=== PATIENT | male | born 1955 | race Caucasian/White ===

== ENCOUNTER 2016-12-29 09:38 | Day surgery (SDC) | payer BC ==
[~2016-12-29 09:38] MED LIST: Buffered Lidocaine 1% SYR 3ML* 3 ML/SYR SYRINGE INTRADERM ONE
[2016-12-29] MEDS ORDERED: Neomycin/Polymy/Dex OPHTH.OIN* 3.5 GM ONE (10:12)
[2016-12-29] MEDS ORDERED: Phenylephrine 2.5% OPTH.SOL* 2 ML BTL ONE (10:12)
[2016-12-29] MEDS ORDERED: Lidocaine 1% MPF* 2 ML VIAL ONE (10:12)
[2016-12-29] MEDS ORDERED: Flurbiprofen 0.03% OPTH.SOL* 2.5 ML BTL ONE (10:12)
[2016-12-29] MEDS ORDERED: Tropicamide 1% OPTH.SOL* BTL ONE (10:12)
[2016-12-29] MEDS ORDERED: Tetracaine 0.5% OPTH.SOL 4 ML* 1 DROP BTL ONE (10:12)
[2016-12-29] MEDS ORDERED: Cyclopentolate 1% OPTH.SOL* 2 ML BTL ONE (10:12)
[2016-12-29] MEDS ORDERED: Midazolam* 1 MG/ML 2 ML VIAL (2 MG) ONE (11:26)
[2016-12-29 12:10] VITALS: BP 128/69
--- NOTE | 2016-12-30 02:26 | OP ---
DATE OF OPERATION: 12/29/16 - [facility] DATE OF : 53 SURGEON: Darrell Walters MD DANCE MASTER: None. ANESTHESIOLOGIST: Jovanny Mackay DO ANESTHESIA: Topical with intravenous sedation. PRE-OP DIAGNOSIS: Cataract with stigmatism, left eye. POST-OP DIAGNOSIS: Cataract with stigmatism, left eye. OPERATIVE PROCEDURE: Phacoemulsification and cataract extraction with posterior chamber intraocular toric lens, left eye. COMPLICATIONS: None. BLOOD LOSS: None. DESCRIPTION OF PROCEDURE: The patient was seen preoperatively in the holding area where he was placed in an upright position and a ari was made at the 6 o' clock position of the conjunctiva near the limbus in his left eye. The patient was subsequently brought to the operating room and given a small amount of intravenous sedation. A drop of tetracaine was placed in the left eye. The patient was prepped and draped in the usual sterile fashion for ophthalmic surgery and attention was directed to the left eye where speculum was placed. A paracentesis was created at the 5 o'clock position and 0.1 cc of 1% preservative-free lidocaine was injected in the anterior chamber followed by DisCoVisc. The eye was digitally stabilized while a 2.75 mm keratome was used to create a triplanar clear corneal incision at the 3 o'clock position. A continuous curvilinear capsulorrhexis was created with a cystotome and Utrata forceps. BSS on a cannula was used to hydrodissect the lens and the capsule. Phacoemulsification was performed in a [id number] technique to create 4 fragments, which were removed. Residual cortical material was removed with irrigation and aspiration. Healon was used to inflate the capsular bag. A marker was used to remark the 95 degree axis at the limbus. An [id number] 20 diopter lens was folded and inserted into the capsular bag. It was atraumatically rotated to the proper axial alignment using a Sinskey hook. The lens was hold in this position with a Sinskey hook through the paracentesis via irrigation and aspiration was performed to remove the viscoelastic from the eye. A Sinskey hook was removed. BSS on a cannula was used to hydrate with the corneal wound. At the end of the case, the pupil was round. The lens was centered stable and axially aligned. The eye pressure appeared normal and the wound was watertight. The speculum was removed and topical Maxitrol ointment was placed on the surface of the eye. The eye was closed, patched, and shielded and the patient was sent to the recovery room in stable condition with postoperative instructions and followup appointment given. [id number]/CPS #: [id number] MTDIrvin
== END 2016-12-29 12:04 | disposition home or self-care (01) ==
LOC: OREAST 09:38
PROVIDERS: ATTEND Ophthalmology
DX: H25.12 Age-related nuclear cataract, left eye (principal); E11.65 Type 2 diabetes mellitus with hyperglycemia; Z79.4 Long term (current) use of insulin; Z79.84 Long term (current) use of oral hypoglycemic drugs; F34.1 Dysthymic disorder; E78.2 Mixed hyperlipidemia; I10 Essential (primary) hypertension; G47.33 Obstructive sleep apnea (adult) (pediatric)
CPT/HCPCS: A9270-GY; J2250; V2787

== ENCOUNTER 2017-08-12 09:00 | Inpatient (IN) | payer BC ==
--- NOTE | 2017-08-03 13:55 | HP ---
HISTORY AND PHYSICAL: DATE OF ADMISSION/SURGERY: 08/12/17 DATE OF OFFICE VISIT: 07/30/17 SURGEON: Ayesha Watkins MD * (DICTATED BY JOSE LACY) PROCEDURE: Right total knee arthroplasty. CHIEF COMPLAINT: Right knee pain. HISTORY OF PRESENT ILLNESS: Mr. Thompson is a 62-year-old gentleman with end- stage osteoarthritis of the right knee. He has failed conservative management and has elected to proceed with a right total knee arthroplasty, which is scheduled for 08/12/[address] Watkins. PAST MEDICAL HISTORY: Diabetes, coronary artery disease, depression. PAST SURGICAL HISTORY: Cholecystectomy, bilateral knee arthroscopies, right foot hammertoe repair and bunionectomy, ganglion cyst excision, C4-C5 fusion, and cataract removal. CURRENT MEDICATIONS: 1. Meloxicam 15 mg daily. 2. Atenolol 25 mg daily. 3. Altace 2.5 mg daily. 4. Nitrostat as needed. 5. Aspirin 81 mg daily. 6. Lipitor 40 mg daily. 7. Vitamin D. 8. Humalog 20 units before meals. 9. Hydrochlorothiazide 20 mg daily. 10. Glucophage 1000 mg twice a day. 11. Levemir 16 units in the evening. 12. Wellbutrin 150 twice daily. 13. Lisinopril 40 mg daily. ALLERGIES: TALWIN, OXYCODONE, PERCOCET, NUCYNTA, all causing nausea. FAMILY HISTORY: Diabetes, heart disease, cancer. 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 He lives with his . He does not smoke or use drugs. REVIEW OF SYSTEMS: A complete 14-point review of systems is reviewed with the patient, was all negative or noncontributory. PHYSICAL EXAMINATION GENERAL: Well developed, well nourished, in no acute distress. HEENT: Normocephalic, atraumatic. NECK: Supple. No palpable lymph nodes. PULMONARY: Lungs are clear to auscultation bilaterally. CARDIO: Regular rate and rhythm. Strong S1, S2. ABDOMEN: Soft, nontender, nondistended. MUSCULOSKELETAL: Right lower extremity, the skin is intact. There are no open wounds or abrasions. 5 to 125 degrees range of motion. 2+ dorsalis pedis pulses. No varus or valgus instability. Tenderness over the medial and lateral joint line. His lower extremity muscle group strengths are intact at 5/5. NEUROLOGICAL: Alert and oriented x3. Cranial nerves II through XII are intact. ASSESSMENT AND PLAN: Mr. Thompson is a 62-year-old gentleman with end-stage osteoarthritis of the right knee. He has failed conservative management and has elected to proceed with a right total knee arthroplasty, which is scheduled for 08/12/[address] Watkins discussed the risks and the benefits of the surgery at today's visit and all of his questions were answered. Coumadin, Dilaudid, and Colace were sent to his pharmacy for postoperative pain control and DVT prophylaxis. He will follow up with Dr. Watkins 2 weeks after the surgery. JOSE LACY [id number]/CPS #: [id number] MTDD
[~2017-08-12 09:00] MED LIST changes: +Buffered Lidocaine 0.9% SYRIN* 5 ML/SYR SYRINGE INTRADERM ONE; -Buffered Lidocaine 1% SYR 3ML* 3 ML/SYR SYRINGE INTRADERM ONE; +Dexamethasone IV* 4 MG/ML 1 ML (4 MG) IV SLOW PU ONE; +Famotidine IV* 10 MG/ML 2 ML (20 mg) IV ONE
[2017-08-12] MEDS ORDERED: ceFAZolin 2 GM PREMIX (*) 0 ML IVPB ONE (11:57)
[2017-08-12] MEDS ORDERED: Dexamethasone IV* 4 MG/ML 1 ML (4 MG) ONE (11:57)
[2017-08-12] MEDS ORDERED: Famotidine IV* 10 MG/ML 2 ML (20 mg) ONE (11:57)
[2017-08-12] MEDS ORDERED: Buffered Lidocaine 0.9% SYRIN* 5 ML/SYR SYRINGE ONE (11:58)
[2017-08-12] MEDS ORDERED: ceFAZolin 1 GM ADVAN(*) 1 GM ADDV.VIAL IVPB ONE (11:58)
[2017-08-12] MEDS ORDERED: Atenolol TAB* 25 MG PO ONE (12:44)
[2017-08-12] MEDS ORDERED: Atenolol TAB* 25 MG ONE (12:51)
[2017-08-12] MEDS ORDERED: KETAMINE HCL* 50 MG/ML 10 ML VIAL ONE (13:06)
[2017-08-12] MEDS ORDERED: Morphine PF AMP (0.5MG/ML)* 5 MG/10 ML AMP ONE (13:06)
[2017-08-12] MEDS ORDERED: Propofol* 10 MG/ML 20 ML BTL IV PUSH ONE (13:06)
[2017-08-12] MEDS ORDERED: Ondansetron INJ* 2 MG/ML VIAL ONE ×2 (13:06→20:05)
[2017-08-12] MEDS ORDERED: Midazolam* 1 MG/ML 5 ML VIAL (5 MG) ONE ×2 (13:06→14:01)
[2017-08-12] MEDS ORDERED: Bupivacaine 0.5% SDV PF* 30 ML VIAL ONE ×2 (13:45→15:45)
[2017-08-12] MEDS ORDERED: Scopolomine PATCH Remove* 1 NOTE MISC PATCH OFF PRN (15:11)
[2017-08-12] MEDS ORDERED: Nalbuphine* 20 MG/ML 1 ML VIAL IV PRN ×2 (15:11)
[2017-08-12] MEDS ORDERED: Scopolamine 1.5 mg* PATCH TRANSDERM PRN (15:11)
[2017-08-12] MEDS ORDERED: fentaNYL* 50 MCG/ML 2 ML VIAL (100 MCG VIAL) IV PRN (15:11)
[2017-08-12] MEDS ORDERED: HYDROmorphone INJ* 1 MG/ML CARPUJECT SYRINGE IV PRN (15:11)
[2017-08-12] MEDS ORDERED: DiMENhydriNATE IV* 50 MG/ML VIAL IV PUSH PRN (15:11)
[2017-08-12] MEDS ORDERED: oxyCODONE/Acetamin 5/325 MG* TAB PO PRN ×2 (15:11)
[2017-08-12] MEDS ORDERED: Naloxone* 0.4 MG/ML 1 ML VIAL IV PRN (15:11)
[2017-08-12] MEDS ORDERED: Lidocaine 2% PF * 5 ML VIAL ONE (15:29)
[2017-08-12] MEDS ORDERED: Polyethylene Glycol 3350* 17 GM PACKET PO PRN (15:34)
[2017-08-12] MEDS ORDERED: Bisacodyl SUPP* 10 MG SUPP PR PRN (15:34)
[2017-08-12] MEDS ORDERED: Acetaminophen TAB* 325 MG PO PRN (15:34)
[2017-08-12] MEDS ORDERED: Magnesium Hydroxide LIQ* 30 ML UDC PO PRN (15:34)
[2017-08-12] MEDS ORDERED: Nitroglycerin TAB 0.4 MG* 0.4 MG TAB SL PRN (15:41)
[2017-08-12] MEDS ORDERED: Hydrochlorothiazide TAB* 25 MG PO SCH (16:00)
[2017-08-12] MEDS ORDERED: INSULIN ASPART 20 UNIT SUBCUT SCH (17:00)
[2017-08-12] MEDS ORDERED: DiMENhydriNATE IV* 50 MG/ML VIAL ONE (17:49)
[2017-08-12] MEDS ORDERED: INSULIN DETEMIR 58 UNIT SC SCH (18:00)
--- NOTE | 2017-08-12 18:15 | RAD ---
Indication: Immediate postop exam following RIGHT total knee replacement. Comparison: July 30, 2017 Technique: Portable AP and cross table lateral views RIGHT knee. Report: Status post total knee replacement. Anterior surgical drain in place. Post-op fluid and gas is seen in the joint space and anterior subcutaneous tissues. Alignment is anatomic. No periprosthetic fracture evident. IMPRESSION: Unremarkable immediate postoperative appearance following RIGHT knee replacement.
[2017-08-12] MEDS ORDERED: Dextrose 50% Syringe 50 ML* 25 GM/50 ML SYRINGE IV PUSH PRN (18:56)
[2017-08-12] MEDS ORDERED: Insulin LISPRO* 1 UNITS UNIT SUBCUT ONE (19:34)
[2017-08-12] MEDS: Insulin LISPRO* 1 UNITS UNIT SUBCUT SCH (19:36)
[2017-08-12] MEDS: Ondansetron INJ* 2 MG/ML VIAL IV PRN (20:06)
[2017-08-12] MEDS ORDERED: metFORMIN* 1,000 MG TAB PO SCH (21:00)
[2017-08-12] MEDS ORDERED: Nalbuphine* 20 MG/ML 1 ML VIAL ONE (21:51)
[2017-08-12] MEDS: Docusate CAP* 100 MG PO SCH (22:43)
[2017-08-12] MEDS: ceFAZolin 1 GM VIAL(*) 1 GM in NS 0.9% 50 ML* 50 ML IVPB SCH (22:50)
[2017-08-12] MEDS ORDERED: Warfarin TAB(*) 6 MG PO ONE (23:00)
--- NOTE | 2017-08-12 23:46 | CONS ---
CC: Dr. Rios; Dr. Watkins * CONSULTATION REPORT: DATE OF CONSULT: 08/12/17 PRIMARY CARE PROVIDER: Dr. Rios. ATTENDING PHYSICIAN WHILE IN THE HOSPITAL: Kirk Soler MD (report dictated by Tiago Ashley NP). REQUESTING PHYSICIAN IN CONSULT: Dr. Watkins. REASON FOR MEDICAL CONSULTATION: Evaluation and management of comorbid medical conditions. HISTORY OF PRESENTING ILLNESS: Mr. Thompson is a 62-year-old male patient. He has a significant medical history for coronary artery disease and diabetes. He has a history of untreated sleep apnea. He comes in to our orthopedic service today for an elective total knee replacement on the right side. He has been having significant amounts of knee discomfort for some time. He has been failing conservative therapy and because of this he presented to Dr. Watkins's service in the outpatient setting and he was cleared via Cardiology and his primary for an elective total knee replacement, which he underwent today. He was evaluated in the PACU. He says he is feeling well, he is a little dizzy. He denies having any chest pain or shortness of breath. He says he does not feel nauseated. He does not feel like he is going to faint, he does not feel like he is going to pass out. Denies having any chest discomfort. He says he is getting sensation back in his lower extremities. He denies having any difficulty with moving his lower extremities. Denies having any shortness of breath, but he does again carry a history of arthritis, diabetes, CAD, depression and THEE and because of these complexities, we were asked to evaluate in consult. PAST MEDICAL HISTORY: Significant for: 1. Arthritis. 2. Diabetes. 3. CAD. 4. Depression. 5. THEE. PAST SURGICAL HISTORY: 1. He has had a cholecystectomy. 2. Knee arthroscopy. 3. Right toe surgery. 4. Bunionectomy. 5. Cystic excision on the right toe. 6. He has an L4-5 laminectomy. 7. He has had cataract extraction. 8. Now he has had a right total knee replacement. FAMILY HISTORY: His mother had a history of dementia. Father had a history of coronary artery disease. SOCIAL HISTORY: He is a nonsmoker, rarely drinks alcohol. He is a retired nurse. Surrogate decision maker is his . ALLERGIES TO MEDICATIONS: Include: 1. HYDROCODONE. 2. OXYCODONE. 3. TAPENTADOL. 4. TALWIN. HOME MEDICATIONS: Include: 1. Ramipril 2.5 mg daily. 2. [place] fatty acids 1 capsule daily. 3. Nitro 0.4 mg sublingual as instructed. 4. Glucophage 1000 mg p.o. b.i.d. 5. Meloxicam 15 mg p.o. daily. 6. Insulin detemir 58 units subcu q.p.m. 7. NovoLog FlexPen sliding scale as directed. 8. Ibuprofen 800 mg p.o. t.i.d. as needed. 9. Hydrochlorothiazide p.o. daily. 10. Vitamin D 2000 units p.o. daily. 11. Lipitor 40 mg daily. 12. Atenolol 25 mg daily. 13. Aspirin 81 mg p.o. b.i.d. REVIEW OF SYSTEMS: There is no documented fever. Denied having any significant weight change. There was no double vision. He denies having any ear discharge. There was no rhinorrhea. No sore throat. No thyroid enlargement. He denied having any chest pain. There is no orthopnea. No nocturnal dyspnea. There is no abdominal pain, no nausea, no vomiting, no dysuria, no frequency, no seizures, no loss of consciousness, no pruritus and no skin ulcerations. Review of 14 systems completed, all others negative. PHYSICAL EXAMINATION: Vital Signs: Blood pressure 124/67, pulse 62, respirations 14, O2 sat 97%, temperature 97.2. General: At this time, Mr. Thompson is a 62-year- old male patient, he is sitting in the PACU. He is morbidly obese. He does not appear to be in any acute distress. HEENT: Head: Atraumatic, normocephalic. Eyes: EOMs are intact. Sclerae anicteric. Not pale. Neck: Supple. Throat: Oral mucosa appears to be moist. No oropharyngeal erythema. Heart: Sounds S1, S2. Regular rate and rhythm. No murmurs, rubs, or gallops. Lungs: Clear to auscultation bilaterally. No wheezes, rales, or rhonchi. Abdomen: Soft, flat, nontender. Bowel sounds hypoactive. Extremities: Pulses were 2+ throughout. He is able to move his upper extremities with 5/5 strength. The right lower extremity, he does have distal CSM checks are intact. Neurologically, he is drowsy, but he awakens to his name. He is alert, he is oriented x3. He had no gross focal deficits. Skin is intact with the exception to the right knee he has an Duong dressing and a Hemovac drain and is intact. DIAGNOSTIC STUDIES/LAB DATA: Preop WBC 9.7, RBC of 5.14, hemoglobin 15.7, hematocrit 46, platelet count 243. INR was 0.84. Sodium 136, potassium 4.9, chloride 102, bicarb 28, BUN 15, creatinine 0.91. His glucose is 171. Urine preop 1+ ketones, 1+ protein, 2+ leukocyte esterase, 2+ wbc's, absent bacteria. Urine culture did grew out strep group B in 50,000 to 75,000 units. He did have a preop stress test, report read as low risk stress test. Preop chest x-ray showed no active cardiopulmonary disease. Preop, he did have a stress test normal, low risk. He had a preop EKG, shows a sinus rhythm, rate 77. No ST elevation or T-wave inversions. Old medical records were reviewed. ASSESSMENT AND PLAN: Mr. Thompson is a 62-year-old male patient with multiple medical problems, coming into orthopedic service today for an elective total knee replacement. We were asked to evaluate in consult. Our recommendations at this point are: 1. Status post right total knee replacement. I will defer the management to Dr. Watkins and her team. 2. Diabetes. At this point, he is on a pretty extensive sliding scale, the copy of this is in his chart, but because I am not quite sure how he is going to be eating in the next 24 hours, I am going to put him on our sliding scale for BMI greater than 40 and we will continue his Levemir, but we will change it over to Lantus and we will follow his diabetes closely. 3. Coronary artery disease. Continue his atenolol. I will get him back on his aspirin as soon as it is deemed safe by the Surgery. 4. Hypertension. Holding the Altace. Continuing the beta-raina for now. 5. Depression. Continue with supportive care. 6. Arthritis. Follow up with his primary. 7. History of obstructive sleep apnea. For the first 24 hours because of the Duramorph, I am going to place him on pulse oximetry. 8. DVT prophylaxis. I will defer to the primary team. 9. Code status: Full code. 10. Fluids, electrolytes, and nutrition. I would recommend a consistent carb diet. TIME SPENT: On the consult 60 minutes, greater than half the time spent face-to - face with the patient obtaining history and physical; other half time spent going over the plan of care with the patient and implementing the plan of care. I did discuss this plan of care with my attending, Dr. Soler, he is in agreement. TIAGO ASHLEY, NITROGEN OPERATOR [id number]/CPS #: [id number] ISAAC
[2017-08-13] MEDS ORDERED: Insulin GLARGINE(*) 1 UNITS UNIT SUBCUT SCH (04:18)
[2017-08-13] MEDS: Ondansetron INJ* 2 MG/ML VIAL IV PRN (04:52)
[2017-08-13] MEDS ORDERED: traMADol TAB* 50 MG PO PRN (06:00)
[2017-08-13] MEDS ORDERED: Ondansetron INJ* 2 MG/ML VIAL IV PRN (06:00)
[2017-08-13] MEDS ORDERED: HYDROmorphone INJ* 2 MG/ML CARPUJECT SYRINGE IV SLOW PU PRN (06:00)
[2017-08-13] MEDS ORDERED: Ondansetron TAB* 4 MG PO PRN (06:00)
[2017-08-13] MEDS: ceFAZolin 1 GM VIAL(*) 1 GM in NS 0.9% 50 ML* 50 ML IVPB SCH ×2 (06:08→14:35)
[2017-08-13 07:30] LABS: Hematocrit 39 % (42-52); Hemoglobin 12.9 g/dl (14.0-18.0)
[2017-08-13] MEDS: Atorvastatin* 40 MG TAB PO SCH (07:46)
[2017-08-13] MEDS: Atenolol TAB* 25 MG PO SCH (07:46)
[2017-08-13] MEDS: Insulin LISPRO* 1 UNITS UNIT SUBCUT SCH ×3 (07:46→17:24)
[2017-08-13] MEDS: Docusate CAP* 100 MG PO SCH ×2 (07:46→21:23)
[2017-08-13 07:47] LABS: BUN/Creatinine Ratio 24.4 (8-20); Calcium 8.7 mg/dL (8.6-10.3); EGFR African American 115.5 (>60); EGFR Non-African American 89.8 (>60); Potassium 4.6 mmol/L (3.5-5.0)
[2017-08-13] MEDS ORDERED: Ramipril CAP* 2.5 MG PO SCH (09:00)
--- NOTE | 2017-08-13 10:28 | PN ---
Progress Note - Progress Note Date of Service: 08/13/17 SOAP: Subjective: []Patient seen OOB in chair, pain well managed. Denies SOB, CP or dizziness. Objective: [] Vital Signs Temp 97.4 F 08/13/17 02:20 Pulse 68 08/13/17 02:20 Resp 16 08/13/17 09:25 BP 117/72 08/13/17 02:20 Pulse Ox 95 08/13/17 02:20 Intake & Output 08/12/17 08/13/17 08/13/17 18:59 06:59 18:59 Intake Total 2100 1340 Output Total 450 800 Balance 1650 540 Weight 321 lb 6.4 oz Intake: IV Fluids 2100 985 3GM ANCEF 100 LR 2000 985 IVPB 55 ABX - CEFAZOLIN 55 Oral 300 Output: Santana 450 650 Emesis 150 Laboratory Results - last 24 hr 08/12/17 08/12/17 08/12/17 12:21 17:33 19:31 Hgb Hct INR (Anticoag Therapy) Sodium Potassium Chloride Carbon Dioxide Anion Gap BUN Creatinine Est GFR ( Amer) Est GFR (Non-Af Amer) BUN/Creatinine Ratio Glucose POC Glucose (mg/dL) 243 H 255 H 297 H Hemoglobin A1c Calcium 08/13/17 08/13/17 08/13/17 07:12 07:12 07:12 Hgb 12.9 L Hct 39 L INR (Anticoag Therapy) 1.02 Sodium 133 Potassium 4.6 Chloride 100 L Carbon Dioxide 24 Anion Gap 9 BUN 21 Creatinine 0.86 Est GFR ( Amer) 115.5 Est GFR (Non-Af Amer) 89.8 BUN/Creatinine Ratio 24.4 H Glucose 346 H POC Glucose (mg/dL) Hemoglobin A1c Calcium 8.7 08/13/17 08/13/17 07:12 07:37 Hgb Hct INR (Anticoag Therapy) Sodium Potassium Chloride Carbon Dioxide Anion Gap BUN Creatinine Est GFR ( Amer) Est GFR (Non-Af Amer) BUN/Creatinine Ratio Glucose POC Glucose (mg/dL) 352 H Hemoglobin A1c 7.6 H Calcium Right knee dressings are dry and intact Hemovac canister with ~350cc of blood collected, drain discontinued without complication, tip intact +DF/PF right ankle calf NT sensation intact distally Assessment: []s/p Right total knee arthroplasty POD #1 Plan: []PT/OT WBAT RLE Coumadin with Lovenox bridge- 8 mg today Change to po Dilaudid secondary to allergy to Oxycodone Home with VNS over weekend
[2017-08-13] MEDS: HYDROmorphone TAB* 4 MG PO PRN ×2 (12:24→18:06)
--- NOTE | 2017-08-13 14:08 | PN ---
Subjective Date of Service: 08/13/17 Interval History: This is a 62 yo male with IDDM who is s/p R TKR. Hospitalist group has been consulted for medical co-management. Patient reports that his glucose is well controlled at home with 58U Levemir nightly and 20U Novolog at mealtime. Glucose today has been consistently >300 mg/dl. It does not look like he received his insulin glargine dose last night. Patient reports good pain control. No n/v. No c/o CP or SOB. Objective Active Medications: Acetaminophen (Tylenol Tab*) 650 mg PO Q4H PRN PRN Reason: PAIN OR TEMPERATURE Atenolol (Tenormin Tab*) 25 mg PO QAM [facility] Last Admin: 08/13/17 07:46 Dose: 25 mg Atorvastatin Calcium (Lipitor*) 40 mg PO QAM [facility] Last Admin: 08/13/17 07:46 Dose: 40 mg Bisacodyl (Dulcolax Supp*) 10 mg ND DAILY PRN PRN Reason: constipation Dextrose (D50w Syringe 50 Ml*) 12.5 gm IV PUSH .FOR FS < 60 - SS PRN PRN Reason: FS < 60 Diphenhydramine HCl (Benadryl Iv*) 12.5 mg IV Q6H PRN PRN Reason: PRURITIS Docusate Sodium (Colace Cap*) 100 mg PO BID [facility] Last Admin: 08/13/17 07:46 Dose: 100 mg Enoxaparin Sodium (Lovenox(*)) 30 mg SUBCUT Q24H [facility] Hydromorphone HCl (Dilaudid Inj*) 1 mg IV SLOW PU Q4H PRN PRN Reason: PAIN Last Admin: 08/13/17 09:25 Dose: 1 mg Hydromorphone HCl (Dilaudid Tab*) 4 mg PO Q6H PRN PRN Reason: PAIN Last Admin: 08/13/17 12:24 Dose: 4 mg Cefazolin Sodium 1 gm/ Sodium (Chloride) 50 mls @ 200 mls/hr IVPB Q8H [facility] Stop: 08/13/17 14:44 Last Admin: 08/13/17 06:08 Dose: 200 mls/hr Lactated Ringer's (Lactated Ringers 1000 Ml Bag*) 1,000 mls @ 100 mls/hr IV PER RATE [facility] Last Admin: 08/13/17 06:09 Dose: 100 mls/hr Insulin Glargine (Lantus(*)) 58 units SUBCUT QPM [facility] Insulin Human Lispro (Humalog*) 20 units SUBCUT AC [facility] Lactulose (Lactulose*) 30 ml PO Q6H PRN PRN Reason: constipation Magnesium Hydroxide (Milk Of Magnesia Liq*) 30 ml PO Q6H PRN PRN Reason: constipation Metformin HCl (Glucophage*) 1,000 mg PO 0800,1700 [facility] Nitroglycerin (Nitroglycerin Tab 0.4 Mg*) 0.4 mg SL Q5M PRN PRN Reason: PAIN - CHEST Ondansetron HCl (Zofran Inj*) 4 mg IV Q6H PRN PRN Reason: NAUSEA Ondansetron HCl (Zofran Tab*) 4 mg PO Q6H PRN PRN Reason: NAUSEA Pharmacy Profile Note (Scopolomine Patch Remove*) 1 note PATCH OFF .AFTER 72 HOURS PRN PRN Reason: nausea Stop: 08/15/17 15:13 Polyethylene Glycol/Electrolytes (Miralax*) 17 gm PO DAILY PRN PRN Reason: Constipation Tramadol HCl (Ultram*) 50 mg PO Q4H PRN PRN Reason: PAIN Warfarin Sodium (Coumadin Tab(*)) 8 mg PO ONCE@1700 ONE PRN Reason: Protocol Stop: 08/13/17 17:01 Vital Signs: Temp Pulse Resp BP Pulse Ox 98.7 F 64 16 119/57 96 08/13/17 11:42 08/13/17 11:18 08/13/17 12:24 08/13/17 11:18 08/13/17 11:18 Oxygen Devices in Use Now: None Appearance: Well appearing middle aged male in NAD Respiratory: Symmetrical Chest Expansion and Respiratory Effort, - - few crackles at the base Cardiovascular: NL Sounds; No Murmurs; No JVD, RRR Extremities: No Edema Skin: No Rash or Ulcers Neurological: Alert and Oriented x 3 Result Diagrams: 08/13/17 07:12 08/13/17 07:12 Assess/Plan/Problems-Billing Assessment: This is a 62 yo male with IDDM, THEE, CAD, depression who is s/p R TKA with Dr Watkins. Hospitalist group is consulting for medical co-management. - Patient Problems (1) Status post total knee replacement Comment: POD #1 Post-op management per ortho (2) IDDM (insulin dependent diabetes mellitus) Comment: Hyperglycemic today, HgbA1c 7.6% It does not appeared patient received Lantus yesterday, but scheduled for this evening Will cont usual home dose of Lantus and 20U Humalog at mealtime Will titrate as needed (3) CAD (coronary artery disease) Comment: Asx Cont home meds, resume ASA when okayed by surgeon (4) THEE (obstructive sleep apnea) Comment: Untreated (5) Depression Comment: No home medications listed Appears stable (6) Full code status (7) DVT prophylaxis Comment: Lovenox/Coumadin per ortho Status and Disposition: Dispo per ortho. Hospitalist will continue to follow.
[2017-08-13] MEDS: metFORMIN* 1,000 MG TAB PO SCH ×2 (14:13→17:23)
[2017-08-13] MEDS: diPHENhydraMINE IV* 50 MG/ML 1 ml VIAL (BENADRYL) IV PRN ×2 (14:36→21:23)
[2017-08-13] MEDS: Enoxaparin(*) 30 MG/0.3 ML SYR SUBCUT SCH (16:27)
[2017-08-13] MEDS ORDERED: Warfarin TAB(*) 4 MG PO ONE (17:00)
--- NOTE | 2017-08-13 18:15 | OP ---
OPERATIVE REPORT: DATE OF OPERATION: 08/12/17 DATE OF : 53 SURGEON: Ayesha Watkins MD MACHINIST SUPERVISOR: JOSE Otoole Ms. did help throughout the procedure with preparation of the leg, wound retraction, manipulation of the knee, and wound closure. ANESTHESIOLOGIST: Curt Joseph MD ANESTHESIA: Spinal. PRE-OP DIAGNOSIS: Severe end-stage degenerative osteoarthritis of the right knee joint with valgus deformity. POST-OP DIAGNOSIS: Severe end-stage degenerative osteoarthritis of the right knee joint with valgus deformity. OPERATIVE PROCEDURE: Right total knee arthroplasty. INDICATIONS: Mr. Thompson is a 62-year-old gentleman with years of increasingly severe right knee pain and valgus deformity. Radiographs confirmed end-stage arthritis with [id number] contact. The patient failed conservative treatment with anti-inflammatories, pain medications, intraarticular injection, and physical therapy. Due to continued pain and decreased quality of life, he elected to undergo right total knee arthroplasty. Informed consent was obtained from the patient. He understood the risks of the surgery included, but were not limited to bleeding, infection, damage to nearby structures, continued pain, need for further surgery, intraoperative fracture, nerve palsy, hardware failure or loosening, knee stiffness, loss of motion, stroke, heart attack, blood clot, and . He wished to proceed. HARDWARE USED: This is cemented [employer] total knee hardware. Two packages of Simplex bone cement. For the femur, a size 7 right posterior stabilized Legion Oxinium femoral component. For the tibia, size 7 right tibial baseplate. For the insert, a 9-mm posterior stabilized articular insert size 7/8. For the patella, 35-mm 3-peg all-poly patella. TOURNIQUET TIME: 61 minutes. ESTIMATED BLOOD LOSS: 300 cc. DRAIN: Medium Hemovac drain. SPECIMEN: Bone and cartilage from the right knee joint sent to Pathology. COMPLICATIONS: None. INTRAOPERATIVE FINDINGS: The patient was noted to have preop valgus deformity of over 10 degrees, which was corrected to anatomic valgus. He had tricompartmental full thickness loss of cartilage. Lateral and patellofemoral compartment were most affected. There was lateral femoral condylar hypoplasia noted. DESCRIPTION OF PROCEDURE: Mr. Thompson was identified in the preanesthesia unit. His right lower extremity was marked as the corrective operative side. Informed consent was signed and placed in the chart. The patient was taken to the operating room and placed under spinal anesthesia. A Santana catheter was placed. Tourniquet was placed on the right thigh. Right lower extremity was prepped and draped in the usual sterile fashion. Preop time-out was made to correctly identify the patient's side and site. Appropriate perioperative antibiotics were given within 1 hour of incision. Tourniquet was inflated and total tourniquet time for this procedure was 61 minutes. A 14-cm midline incision was made with a 10 blade and carried down to the extensor mechanism. New 10 blade was used to make a standard medial parapatellar arthrotomy. The patella was subluxed laterally. Electrocautery was used to subperiosteally elevate soft tissue off the superomedial tibia to the mid sagittal plane. The knee was flexed up. Anterior horn of the lateral meniscus was not visible. ACL was sharply released. A drill was used to enter the distal femur. Distal femoral intramedullary cutting guide was pinned on the distal femur. The lateral femoral condylar hypoplasia was noted and accounted for. Oscillating saw was used to make the distal femoral cut. Next, the external rotation guide was pinned on the distal femur and the distal femur was sized to a size 7. Size 7 multi-cutting jig was pinned on the distal femur. Oscillating saw was used to make the appropriate femoral cuts. All bony fragments were carefully removed. PCL was completely released. Extramedullary tibial cutting guide was pinned on the proximal tibia. Proximal tibial bone fragment was carefully removed. The knee was brought out into full extension. Spacer block had excellent fit with full extension. Medial and lateral ligaments were well balanced. Flexion and extension gaps were well balanced. The knee was flexed up. Lamina analytical research chemist was placed both medially and laterally. Any remaining meniscus was carefully removed using electrocautery. Posterior osteophytes were removed using curved osteotome and curette. Trial 7 right femur was impacted on to the distal femur. This femur had excellent stability. Box for the posterior stabilized implant was prepared using a reamer and box cut osteotome. A size 7 tibial tray trial with a 9-mm insert trial was chosen. The knee was taken through a range of motion and it had full extension to 130 degrees of flexion. There was satisfactory patellofemoral tracking. Patella was everted. 9 mm of patellar bone and cartilage was carefully removed using an oscillating saw. The patella was sized to a size 35. Three peg holes were drilled through the size 35 guide. A 35 trial patella was placed and the knee was taken through a range of motion. There was satisfactory patellofemoral tracking. All trials were carefully removed. The tibia was subluxed anteriorly. Tibia was sized to a size 7. Proximal tibia was prepared using a size 7 keel punch. All bony cut surfaces were copiously irrigated with sterile saline and dried. Final implants were cemented into place starting with the tibia, followed by the femur and lastly the patella. A 9-mm insert trial was placed while the knee was brought into full extension. Tourniquet was turned down at 61 minutes. The knee was copiously irrigated with sterile saline. Once the cement had fully cured, the insert trial was removed. Any excess cement was removed from around the hardware around the capsule. Electrocautery was used to obtain meticulous hemostasis. Final insert chosen was a 9-mm posterior stabilized articular insert. It was locked into position on the tibial tray. Stability of the insert was checked and rechecked and noted to be stable. The knee was copiously irrigated with sterile saline. The extensor mechanism was closed using interrupted #1 Vicryl's over a medium Hemovac drain. The rest of the incision was closed in a layered fashion using 0 and 2-0 Vicryl's. Skin was closed using running 3-0 nylon suture. Sterile Xeroform, 4x4's, and Webril were used to cover the incision. Duong wrap and cold pack were placed over this. The patient's anesthesia was reversed without difficulty. He was taken to the PACU in stable condition. Intended weightbearing will be weightbearing as tolerated. Intended DVT prophylaxis will be coumadin with a lovenox bridge. [id number]/[facility] #: [id number] ISAAC
[2017-08-14] MEDS: HYDROmorphone TAB* 4 MG PO PRN ×2 (00:05→08:01)
[2017-08-14 06:37] LABS: Hematocrit 32 % (42-52); Hemoglobin 11.2 g/dl (14.0-18.0)
--- NOTE | 2017-08-14 07:37 | PN ---
Progress Note - Progress Note Date of Service: 08/14/17 SOAP: Subjective: Pt. is alert, c/o aching pain. He wants to go home today. Objective: RLE - dressing changed, inc c/d/i. distally nvi. Vital Signs: Temp Pulse Resp BP Pulse Ox 97.9 F 74 14 139/73 96 08/14/17 03:28 08/14/17 03:28 08/14/17 05:24 08/14/17 03:28 08/14/17 03:28 Laboratory Results - last 24 hr 08/13/17 08/13/17 08/13/17 07:12 07:12 07:12 Hgb 12.9 L Hct 39 L INR (Anticoag Therapy) 1.02 Sodium 133 Potassium 4.6 Chloride 100 L Carbon Dioxide 24 Anion Gap 9 BUN 21 Creatinine 0.86 Est GFR ( Amer) 115.5 Est GFR (Non-Af Amer) 89.8 BUN/Creatinine Ratio 24.4 H Glucose 346 H POC Glucose (mg/dL) Hemoglobin A1c Calcium 8.7 08/13/17 08/13/17 08/13/17 07:12 07:37 12:27 Hgb Hct INR (Anticoag Therapy) Sodium Potassium Chloride Carbon Dioxide Anion Gap BUN Creatinine Est GFR ( Amer) Est GFR (Non-Af Amer) BUN/Creatinine Ratio Glucose POC Glucose (mg/dL) 352 H 347 H Hemoglobin A1c 7.6 H Calcium 08/13/17 08/14/17 08/14/17 16:30 06:20 06:20 Hgb 11.2 L Hct 32 L INR (Anticoag Therapy) 1.26 H Sodium Potassium Chloride Carbon Dioxide Anion Gap BUN Creatinine Est GFR ( Amer) Est GFR (Non-Af Amer) BUN/Creatinine Ratio Glucose POC Glucose (mg/dL) 276 H Hemoglobin A1c Calcium Assessment: 62 yo M pod 2 s/p RTKA Plan: pt/ot wbat add morphine ER BID for pain control lovenox today d/c to home with vns
[2017-08-14] MEDS: Docusate CAP* 100 MG PO SCH (08:00)
[2017-08-14] MEDS: Atorvastatin* 40 MG TAB PO SCH (08:00)
[2017-08-14] MEDS: metFORMIN* 1,000 MG TAB PO SCH (08:00)
[2017-08-14] MEDS ORDERED: Morphine TAB Extended Release (*) 15 MG TAB.ER PO SCH (08:00)
[2017-08-14] MEDS: Atenolol TAB* 25 MG PO SCH (08:01)
[2017-08-14] MEDS: Insulin LISPRO* 1 UNITS UNIT SUBCUT SCH (08:10)
--- NOTE | 2017-08-14 08:35 | PN ---
Subjective Date of Service: 08/14/17 Interval History: Patient seen and examined at bedside. Patient states sugars elevated. He states at home he usually can take up to 60 units total daily of Lispro. Pain controlled. Going home today. Family History: Unchanged from Admission Social History: Unchanged from Admission Past Medical History: Unchanged from Admission Objective Active Medications: Acetaminophen (Tylenol Tab*) 650 mg PO Q4H PRN Atenolol (Tenormin Tab*) 25 mg PO QAM CHIQUI Atorvastatin Calcium (Lipitor*) 40 mg PO QAM CHIQUI Bisacodyl (Dulcolax Supp*) 10 mg [place] DAILY PRN Diphenhydramine HCl (Benadryl Iv*) 12.5 mg IV Q6H PRN Docusate Sodium (Colace Cap*) 100 mg PO BID CHIQUI Enoxaparin Sodium (Lovenox(*)) 30 mg SUBCUT Q24H CHIQUI Hydromorphone HCl (Dilaudid Inj*) 1 mg IV SLOW PU Q4H PRN Hydromorphone HCl (Dilaudid Tab*) 4 mg PO Q6H PRN Insulin Glargine (Lantus(*)) 58 units SUBCUT QPM CHIQUI Insulin Human Lispro (Humalog*) 25 units SUBCUT AC CHIQUI Lactulose (Lactulose*) 30 ml PO Q6H PRN Magnesium Hydroxide (Milk Of Magnesia Liq*) 30 ml PO Q6H PRN Metformin HCl (Glucophage*) 1,000 mg PO 0800,1700 CHIQUI Morphine Sulfate (Ms Contin(*)) 15 mg PO Q8H CHIQUI Nitroglycerin (Nitroglycerin Tab 0.4 Mg*) 0.4 mg SL Q5M PRN Ondansetron HCl (Zofran Inj*) 4 mg IV Q6H PRN Ondansetron HCl (Zofran Tab*) 4 mg PO Q6H PRN Pharmacy Profile Note (Scopolomine Patch Remove*) 1 note PATCH OFF .AFTER 72 HOURS PRN Polyethylene Glycol/Electrolytes (Miralax*) 17 gm PO DAILY PRN Tramadol HCl (Ultram*) 50 mg PO Q4H PRN 08/14/17 08/14/17 07:58 08:01 Temperature 98.3 F Pulse Rate 73 Respiratory 16 18 Rate Blood Pressure 145/62 (mmHg) O2 Sat by Pulse 100 Oximetry Oxygen Devices in Use Now: None Appearance: sitting up in chair, NAD Eyes: No Scleral Icterus, PERRLA Ears/Nose/Mouth/Throat: NL Teeth, Lips, Gums Neck: NL Appearance and Movements; NL JVP Respiratory: Symmetrical Chest Expansion and Respiratory Effort, Clear to Auscultation Cardiovascular: NL Sounds; No Murmurs; No JVD, RRR Abdominal: NL Sounds; No Tenderness; No Distention Extremities: No Edema Skin: No Rash or Ulcers, - - R knee incision C/D/I Neurological: Alert and Oriented x 3 Lines/Tubes/Other Access: Clean, Dry and Intact Peripheral IV Nutrition: Taking PO's Result Diagrams: 08/14/17 06:20 08/13/17 07:12 Assess/Plan/Problems-Billing This is a 62 yo male with IDDM, THEE, CAD, depression who is s/p R TKA with Dr Watkins. Hospitalist group is consulting for medical co-management. - Patient Problems (1) Status post total knee replacement Comment: Management per Ortho. Pain controlled. (2) IDDM (insulin dependent diabetes mellitus) Current Visit: Yes Comment: Increase Lispro to 25 units qAC. Continue home Lantus at 58 units. (3) CAD (coronary artery disease) Comment: Continue home medications. Resume ASA when ok by Ortho. (4) Depression Comment: Stable. (5) THEE (obstructive sleep apnea) Comment: Untreated (6) DVT prophylaxis Comment: Lovenox/Coumadin per ortho (7) Full code status Status and Disposition: Dispo per Ortho. Plan to be discharged home today.
[2017-08-14] MEDS ORDERED: Insulin LISPRO* 1 UNITS UNIT SUBCUT SCH (11:30)
[2017-08-14 11:39] VITALS: BP 137/60
[2017-08-14] MEDS: Enoxaparin(*) 30 MG/0.3 ML SYR SUBCUT SCH (13:07)
--- NOTE | 2017-08-15 04:05 | DS ---
AMENDED REPORT NOW INCLUDES COSIGNER DESIGNATION - ESIGNED BEFORE ADJUSTMENT DISCHARGE SUMMARY: DATE OF ADMISSION: 08/12/17 DATE OF DISCHARGE: 08/14/17 ATTENDING PHYSICIAN: Dr. Ayesha Watkins * (DICTATED BY JOSE GUZMAN) PRINCIPAL DIAGNOSIS: Right knee osteoarthritis. SECONDARY DIAGNOSES: 1. Diabetes. 2. Coronary artery disease. 3. Depression. PRINCIPAL PROCEDURE: Right total knee arthroplasty. REASON FOR HOSPITALIZATION: Mr. Thompson is a 62-year-old gentleman with end- stage osteoarthritis of the right knee. He had failed conservative management and had elected to proceed with right total knee arthroplasty. This was scheduled on 08/12/[address] Watkins. HOSPITAL COURSE: The patient was admitted to the hospital on 08/12/17 in anticipation of a right total knee arthroplasty. He underwent the surgery without any complications. He was transferred to the recovery room and subsequently to the surgical stay unit in a stable condition. He has been on Dilaudid for pain control and was then switched to morphine sulfate. He participated in physical therapy and occupational therapy throughout the hospital course and has done quite well. He has been on Coumadin for DVT prophylaxis. Daily INR has been drawn. He has had daily hemoglobin and hematocrit drawn, last value were hemoglobin of 12.9 and hematocrit of 39. His vital signs have remained stable throughout the hospital course including remaining afebrile. The patient is being discharged home on 08/14/17 in a stable condition. DISCHARGE INSTRUCTIONS: Weightbearing as tolerated. Wound care: Okay to shower, no bathing, swimming, submerging wound, use gentle soap, pat dry, cover with gauze, Duong wrap or tape. Call orthopedic office for increased drainage, redness, increased pain or fever. Go to ER with shortness of breath or chest pain. Diet: Regular diet, increase fluids and fiber to prevent constipation. Continue the use of stool softeners. Call the office if no bowel movements within 48 hours. Continue physical therapy and occupational therapy exercises as shown. Visiting home nurse to do wound checks. Visiting home nurse to draw blood work for INR on Wednesday and . Coumadin dosing, take 8 mg of Coumadin today then 6 mg tomorrow, on 08/15/17. The visiting home nurse will redraw INR on Wednesday for dosing. Antibiotics required prior to any dental work. Follow up with Dr. Watkins within 10 to 14 days, call the orthopedic office for appointment. JOSE GUZMAN [id number]/[facility] #: [id number] ISAAC
== END 2017-08-14 13:10 | disposition home health service (06) | DRG 302 ==
LOC: AA 11:42 → SSU 20:00
PROVIDERS: ADMIT Orthopaedic Surgery Adult Reconstructive Orthopaedic Surgery; ATTEND Orthopaedic Surgery Adult Reconstructive Orthopaedic Surgery
PROC: 0SRC0J9 Replacement of Right Knee Joint with Synthetic Substitute, Cemented, Open Approach (ICD-10-PCS; principal; 2017-08-12 14:00)
DX: M17.11 Unilateral primary osteoarthritis, right knee (principal); G62.9 Polyneuropathy, unspecified; Z68.41 Body mass index [BMI] 40.0-44.9, adult; E11.9 Type 2 diabetes mellitus without complications; F32.9 Major depressive disorder, single episode, unspecified; I25.10 Atherosclerotic heart disease of native coronary artery without angina pectoris; Z98.1 Arthrodesis status; Z98.49 Cataract extraction status, unspecified eye; Z88.5 Allergy status to narcotic agent; Z88.8 Allergy status to other drugs, medicaments and biological substances; Z82.49 Family history of ischemic heart disease and other diseases of the circulatory system; Z83.3 Family history of diabetes mellitus; Z80.9 Family history of malignant neoplasm, unspecified; G47.33 Obstructive sleep apnea (adult) (pediatric); Z96.651 Presence of right artificial knee joint; Z81.8 Family history of other mental and behavioral disorders; E66.9 Obesity, unspecified; M48.00 Spinal stenosis, site unspecified; M21.061 Valgus deformity, not elsewhere classified, right knee
CPT/HCPCS: 36415; 80048; 83036; 85014; 85018; 85610; A9270-GY; C1776; J0690; J1100; J1170; J1200; J1240; J1650; J2250; J2300; J2405; J2704

== ENCOUNTER → 2019-01-27 09:33 | Day surgery (SDC) | payer BC, OTHER ==
[~2019-01-27 09:33] MED LIST changes: +Acetaminophen IV 1GM/100ML * 1,000 MG/100 ML VIAL IVPB ONE; +Acetaminophen IV 1GM/100ML * 100 ML ONE; -Buffered Lidocaine 0.9% SYRIN* 5 ML/SYR SYRINGE INTRADERM ONE; +Buffered Lidocaine 1% SYRIN* 1 ML/SYRINGE INTRADERM ONE; +Bupivacaine 0.25% SDV PF* 10 ML VIAL INJ ONE; -Dexamethasone IV* 4 MG/ML 1 ML (4 MG) IV SLOW PU ONE; +DiMENhydriNATE IV* 50 MG/ML VIAL IV PUSH PRN; +EPHEDrine (Pressors)* 50 MG/ML VIAL ONE; +Famotidine IV* 10 MG/ML 2 ML (20 mg) ONE; +Ketorolac INJ* 30 MG/ML 1 ML VIAL ONE; +Lactated Ringers 1000 ML Bag* 1,000 ML IV SCH; +Lidocaine 2% PF * 5 ML VIAL ONE; +Midazolam* 1 MG/ML 5 ML VIAL (5 MG) ONE; +Naloxone* 0.4 MG/ML 1 ML VIAL IV PRN; +Ondansetron INJ* 2 MG/ML VIAL ONE; +PROCHLORPERAZINE INJ 5 MG/ML 2 ML VIAL ONE; +Propofol* 10 MG/ML 20 ML BTL ONE; +Rocuronium* 10 MG/ML VIAL ONE; +Scopolamine 1.5 mg* PATCH ONE; +Scopolamine 1.5 mg* PATCH TRANSDERM ONE; +Scopolamine PATCH Remove* 1 NOTE MISC PATCH OFF ONE; +Sugammadex * 500 MG/5 ML VIAL IV PUSH ONE; +ceFAZolin 1 GM in Dextrose (*) 1 GM/50 ML BAG IVPB ONE; +ceFAZolin 2 GM in NS PREMIX(*) 2 GM/100 ML BAG IVPB ONE; +fentaNYL* 50 MCG/ML 2 ML VIAL (100 MCG VIAL) IV PRN; +fentaNYL* 50 MCG/ML 5 ML VIAL (250 MCG VIAL) ONE
[2019-01-27 15:01] VITALS: BP 156/86
--- NOTE | 2019-01-27 20:44 | OP ---
CC: Vladimir Rios MD * DATE OF OPERATION: 01/27/19 - [facility] DATE OF : 53 SERVICE: General surgery. ATTENDING SURGEON: Janis Mccall MD. INTERVENTION NURSE: Kimani Cronin MD. ANESTHESIOLOGIST: Summer Coronado MD. ANESTHESIA: General endotracheal anesthesia. PRE-OP DIAGNOSIS: Umbilical hernia. POST-OP DIAGNOSIS: Umbilical hernia. OPERATIVE PROCEDURE: Laparoscopic umbilical hernia repair with mesh. ESTIMATED BLOOD LOSS: Minimal, less than 10 cc. INDICATIONS: Mr. Thompson is a very pleasant 63-year-old man with a history of morbid obesity who developed an umbilical hernia status after a laparoscopic cholecystectomy approximately 20 years ago. It had become more bothersome and painful over the last several months and therefore, he decided to have an elective repair. He understood the risks, benefits, and alternatives of the procedure and he wished to proceed. DESCRIPTION OF PROCEDURE: The patient was brought back to the operating room and placed on the operating room table in the supine position. Sequential compression devices were placed on the bilateral lower extremities for DVT prophylaxis. Antibiotic with Ancef was administered prior to incision. General endotracheal anesthesia was induced and the patient had a Santana catheter then placed. The abdomen was prepped and draped in the normal sterile fashion and prior to beginning the procedure, a time-out was performed, verifying the patient's name, MR number, and the procedure to be performed. A Veress needle was used to enter the abdomen in the left upper quadrant. A saline drop test confirmed that it was indeed in the abdomen and insufflation was obtained to 15 mmHg. After this was done, a 5 mm trocar was used to enter the abdomen in the LUQ under direct visualization. Once the abdomen was entered with a 5 mm trocar , upon general inspection of the abdominal cavity, there was no apparent injury that had been made. Next, under direct visualization, after administering local anesthesia, the remaining two 5 mm trocars were placed, 1 in the left mid abdomen and 1 also in the left lower abdomen. After this, the Veress needle was also examined and removed. General inspection of the abdominal wall showed that there was an umbilical defect. However, there were no contents within this defect and it was palpable easily from the skin side. Given that there were no intraabdominal contents within the hernia sac, attention was then turned towards taking down the falciform ligament with a LigaSure and once this was done, the defect was measured from the outside using a needle and it was measured to be at the skin approximately 5 x 5 cm. Noting this, a round 15c cm mesh was selected. It was a Ventralight mesh using the echo positioning system. The LUQ 5mm trocar was upsized to a 12 mm trocar and the mesh was rolled up and then placed inside the abdominal cavity. The end of it was grasped and brought out through the umbilicus where the center of the hernia defect was. Once this was done, the positioning device was then insufflated and once this was positioned in place, a tacker was used to secure it in 4 corners and then the balloon portion was desufflated and removed from the abdomen. Examination showed that all of the parts of this were indeed removed and intact. After this was done, a tacker was used to circumferentially tack the mesh to the abdominal wall with 2 rings of tacks. Once the mesh was secured to the abdominal wall, the 12 mm trocar site was closed using an 0 Vicryl suture passer in a [id number] fashion. Once this was done, desufflation was obtained. All the skin was closed using 4-0 Monocryl suture and sterile dressing was placed. The patient had his Santana catheter removed. His general endotracheal anesthesia was reversed and he was taken to the PACU in stable condition. At the end of the case, all counts were correct and I was present during the entirety of the case. [id number]/[facility] #: [id number] MTDD
== END | disposition home or self-care (01) ==
LOC: OR 09:33
PROVIDERS: ATTEND Surgery
DX: K42.9 Umbilical hernia without obstruction or gangrene (principal); E11.9 Type 2 diabetes mellitus without complications; Z79.4 Long term (current) use of insulin; I10 Essential (primary) hypertension; E66.9 Obesity, unspecified; E78.5 Hyperlipidemia, unspecified; G47.33 Obstructive sleep apnea (adult) (pediatric)
CPT/HCPCS: A9270-GY; C1781; J0690; J0780; J1885; J2250; J2405; J2704; J3010; J3490